=== PATIENT | female | born 1960 | race Caucasian/White ===

== ENCOUNTER 2025-02-18 13:36 | Inpatient (IN) | payer OTHER ==
[~2025-02-18] VITALS: Ht 170.2 cm; Wt 76.6 kg
[2025-02-18 14:34] LABS: BASO # 0.0 10^3/uL (0.0-0.2); BASO % 0.5 % (0.0-1.0); EOS # 0.1 10^3/uL (0.0-0.5); EOS % 0.7 % (0.0-3.0); LYMPH # 2.4 10^3/uL (1.5-5.0); LYMPH % 32.2 % (24.0-44.0); MONO # 2.3 10^3/uL (0.0-0.8); MONO % 30.4 % (2.0-8.0); NEUTROPHILS # 2.6 10^3/uL (1.5-8.5); NEUTROPHILS % 35.4 % (36.0-66.0); PLATELET COUNT, AUTOMATED 182 10^3/uL (150-450)
[2025-02-18 14:58] LABS: ALT/SGPT 22.0 U/L (7.0-40); AST/SGOT 18.0 U/L (<34); CALCIUM LEVEL 13.3 MG/DL (8.3-10.6); CARBON DIOXIDE LEVEL 25.0 MMOL/L (20-31); CHLORIDE LEVEL 109.0 MMOL/L (98-107); CREATININE FOR GFR 1.37 MG/DL (0.55-1.30); GLOMERULAR FILTRATION RATE 43.1 (>45); POTASSIUM SERUM 3.8 MMOL/L (3.5-5.1); SODIUM LEVEL 144.0 MMOL/L (136-145)
[2025-02-18 15:02] LABS: THYROXINE (T4) 8.1 UG/DL (4.5-10.9)
[2025-02-18 15:10] LABS: T UPTAKE 29.2 % (22.5-37.0)
[2025-02-18 16:02] LABS: PTH INTACT 843.6 PG/ML (18.5-88.0)
[2025-02-18] MEDS ORDERED: IRON27TA2 PO (16:05)
[2025-02-18] MEDS ORDERED: CALC-190 PO (16:05)
[2025-02-18] MEDS ORDERED: CHOL100012 PO (16:05)
[2025-02-18] MEDS ORDERED: HOME MED LIST COMPLETE! XX SCH (16:05)
[2025-02-18] MEDS ORDERED: THERTAB52 PO (16:05)
[2025-02-18] MEDS ORDERED: OMEP-173 PO (16:05)
[2025-02-18 16:06] LABS: TOTAL 25(OH) VITAMIN D 24.8 NG/ML (20.0-100.0)
[2025-02-18] MEDS: NS (Normal Saline) 0.9% 1,000 ML IV SCH ×2 (16:22→17:15)
[2025-02-18 18:10] LABS: PHOSPHORUS LEVEL 1.5 MG/DL (2.4-5.1)
[2025-02-18] MEDS: CINACALCET 30 MG TAB PO SCH (21:32)
[2025-02-18 22:04] VITALS: BP 140/74; TEMP 97.1; O2SAT 99
[2025-02-19 04:55] VITALS: BP 126/65; TEMP 97.9; O2SAT 96
[2025-02-19 07:19] LABS: PLATELET COUNT, AUTOMATED 146 10^3/uL (150-450)
[2025-02-19 07:49] LABS: ALT/SGPT 19.0 U/L (7.0-40); AST/SGOT 16.0 U/L (<34); CALCIUM LEVEL 11.3 MG/DL (8.3-10.6); CARBON DIOXIDE LEVEL 25.0 MMOL/L (20-31); CHLORIDE LEVEL 113.0 MMOL/L (98-107); CREATININE FOR GFR 1.09 MG/DL (0.55-1.30); GLOMERULAR FILTRATION RATE 56.7 (>45); MAGNESIUM LEVEL 1.7 MG/DL (1.8-2.4); POTASSIUM SERUM 3.7 MMOL/L (3.5-5.1); SODIUM LEVEL 147.0 MMOL/L (136-145)
[2025-02-19] MEDS: OMEPRAZOLE 20MG CAP PO SCH (08:42)
[2025-02-19 11:47] VITALS: BP 124/60; TEMP 97.4; O2SAT 98
[2025-02-19] MEDS: POTASSIUM PHOSPHATE INJ 30 MMOL in D5W 500 ML IV ONE (15:48)
[2025-02-19 19:33] VITALS: BP 127/72; TEMP 97.3; O2SAT 98
[2025-02-19] MEDS: NEUTRA-PHOS 1.5 GM PACKET PO ONE (19:48)
[2025-02-19] MEDS: VITAMIN D 1,000 INTERNATIONAL UNITS TABLET PO SCH (19:48)
[2025-02-19 19:49] LABS: CALCIUM LEVEL 11.3 MG/DL (8.3-10.6); CARBON DIOXIDE LEVEL 24.0 MMOL/L (20-31); CHLORIDE LEVEL 111.0 MMOL/L (98-107); CREATININE FOR GFR 1.18 MG/DL (0.55-1.30); GLOMERULAR FILTRATION RATE 51.6 (>45); POTASSIUM SERUM 3.3 MMOL/L (3.5-5.1); SODIUM LEVEL 145.0 MMOL/L (136-145)
[2025-02-19] MEDS: MAG SULF 1GM/100ML (MAG RUN) 1 GM in IV 1 EA IV ONE (19:56)
[2025-02-19] MEDS: ZOLEDRONIC ACID 4 MG in IV 1 EA IV ONE (21:11)
[2025-02-20 04:03] VITALS: BP 121/58; TEMP 97.4; O2SAT 98
[2025-02-20 07:08] LABS: CALCIUM LEVEL 9.7 MG/DL (8.3-10.6); CARBON DIOXIDE LEVEL 22.0 MMOL/L (20-31); CHLORIDE LEVEL 115.0 MMOL/L (98-107); CREATININE FOR GFR 1.07 MG/DL (0.55-1.30); GLOMERULAR FILTRATION RATE 58.0 (>45); MAGNESIUM LEVEL 1.6 MG/DL (1.8-2.4); PHOSPHORUS LEVEL 2.7 MG/DL (2.4-5.1); POTASSIUM SERUM 3.8 MMOL/L (3.5-5.1); SODIUM LEVEL 146.0 MMOL/L (136-145)
[2025-02-20] MEDS: POTASSIUM CHLORIDE 10MEQ SR TABLET PO ONE (11:53)
[2025-02-20] MEDS: MAG SULF 1GM/100ML (MAG RUN) 1 GM in IV 1 EA IV SCH (11:53)
[2025-02-20 11:59] VITALS: BP 138/79; TEMP 98.1; O2SAT 99
[2025-02-20] MEDS: NEUTRA-PHOS 1.5 GM PACKET PO ONE (13:01)
[2025-02-20] MEDS: ACETAMINOPHEN 500 MG TAB PO ONE (15:03)
[2025-02-20] MEDS: amLODIPine 5 MG TAB PO ONE (15:04)
[2025-02-20 19:32] VITALS: BP 132/67; TEMP 97.4; O2SAT 98
[2025-02-21 04:13] VITALS: BP 144/69; TEMP 97.8; O2SAT 97
[2025-02-21 06:01] LABS: CALCIUM LEVEL 8.8 MG/DL (8.3-10.6); CARBON DIOXIDE LEVEL 22.0 MMOL/L (20-31); CHLORIDE LEVEL 113.0 MMOL/L (98-107); CREATININE FOR GFR 1.07 MG/DL (0.55-1.30); GLOMERULAR FILTRATION RATE 58.0 (>45); MAGNESIUM LEVEL 1.9 MG/DL (1.8-2.4); PHOSPHORUS LEVEL 2.0 MG/DL (2.4-5.1); POTASSIUM SERUM 3.9 MMOL/L (3.5-5.1); SODIUM LEVEL 144.0 MMOL/L (136-145)
[2025-02-21] MEDS: ACETAMINOPHEN 500 MG TAB PO ONE (08:40)
[2025-02-21] MEDS: MAG SULF 1GM/100ML (MAG RUN) 1 GM in IV 1 EA IV ONE (08:40)
[2025-02-21] MEDS: POTASSIUM CHLORIDE 10MEQ SR TABLET PO ONE (08:40)
[2025-02-21 08:42] VITALS: BP 136/66
[2025-02-21] MEDS: amLODIPine 5 MG TAB PO ONE (08:42)
[2025-02-21 09:22] LABS: INR 1.0
[2025-02-21] MEDS: NEUTRA-PHOS 1.5 GM PACKET PO ONE (09:40)
[2025-02-21] MEDS: RIZATRIPTAN BENZOATE 10 MG TAB PO ONE (09:41)
[2025-02-21 12:00] VITALS: BP 130/70; TEMP 97; O2SAT 100
[2025-02-21] MEDS ORDERED: VITAD1000T PO (15:24)
[2025-02-21] MEDS ORDERED: NEUTRA-PHOS 1.5 GM PACKET PO ONE (15:40)
[2025-02-22] MEDS ORDERED: NEUTRA-PHOS 1.5 GM PACKET PO SCH (08:00)
== END 2025-02-21 17:03 | disposition home or self-care (01) | DRG 424 ==
LOC: M ED 13:36 → M ED INP 17:11 → M MS4PR 22:10
PROVIDERS: ADMIT Internal Medicine; ATTEND General Practice
DX: E21.0 Primary hyperparathyroidism (principal); N17.9 Acute kidney failure, unspecified; E87.0 Hyperosmolality and hypernatremia; M81.0 Age-related osteoporosis without current pathological fracture; K21.9 Gastro-esophageal reflux disease without esophagitis; D50.9 Iron deficiency anemia, unspecified; E87.6 Hypokalemia; E04.2 Nontoxic multinodular goiter; D35.1 Benign neoplasm of parathyroid gland; Z90.49 Acquired absence of other specified parts of digestive tract; Z79.899 Other long term (current) drug therapy

== ENCOUNTER → 2025-02-28 | Outpatient (CLI) | payer OTHER ==
[~2025-02-28] MED LIST: CALC-190 PO; CHOL100012 PO; IRON27TA2 PO; OMEP-173 PO; THERTAB52 PO; VITAD1000T PO
[2025-02-28] MEDS: LIDOCAINE 1% MDV 20 ML VIAL SC STA (10:28)
[2025-02-28 10:30] VITALS: TEMP 98.9
[2025-02-28 11:10] VITALS: BP 152/72; O2SAT 98
== END ==
LOC: M IRPRO 09:51
PROVIDERS: ATTEND Otolaryngology
DX: E04.1 Nontoxic single thyroid nodule (principal)

== ENCOUNTER 2025-04-02 08:27 | Day surgery (SDC) | payer OTHER ==
[~2025-04-02] VITALS: Ht 170.2 cm; Wt 78.0 kg
[2025-04-02] MEDS ORDERED: LR 1,000 ML IV SCH (09:15)
[2025-04-02] MEDS ORDERED: dexAMETHasone 4 MG/ML 1 ML VIAL As Ordered ONE (10:43)
[2025-04-02] MEDS ORDERED: SUGAMMADEX SODIUM 500 MG/5 ML VIAL As Ordered ONE (10:44)
[2025-04-02] MEDS ORDERED: ONDANSETRON 4MG 2ML VIAL As Ordered ONE (10:44)
[2025-04-02] MEDS ORDERED: ROCURONIUM BROMIDE 50MG/5ML VIAL As Ordered ONE (10:44)
[2025-04-02] MEDS ORDERED: LIDOCAINE 2% 100 MG/5 ML SDV (FOR ANES.) As Ordered ONE (10:44)
[2025-04-02] MEDS ORDERED: SUCCINYLCHOLINE 100MG/5ML SYRINGE As Ordered ONE (10:44)
[2025-04-02] MEDS ORDERED: MIDAZOLAM INJ 2 MG/2 ML VIAL As Ordered ONE (12:32)
[2025-04-02] MEDS ORDERED: ACETAMINOPHEN 1000MG/100ML IV BAG As Ordered ONE (14:01)
[2025-04-02] MEDS ORDERED: HYDROmorphone HCL 2 MG/ML 1 ML VIAL As Ordered ONE (15:26)
[2025-04-02] MEDS: LIDOCAINE W/EPINEPHrine 1% 20 ML VIAL As Ordered ONE (16:26)
[2025-04-02] MEDS: ONDANSETRON 4MG 2ML VIAL IV PRN (17:39)
[2025-04-02] MEDS: MORPHINE 4 MG/ML 1 ML VIAL IV PRN (17:39)
[2025-04-02 19:18] VITALS: BP 119/62; TEMP 97.9; O2SAT 96
== END 2025-04-02 19:22 | disposition home or self-care (01) ==
LOC: M SDC 08:27
PROVIDERS: ATTEND Otolaryngology
DX: D35.1 Benign neoplasm of parathyroid gland (principal); E21.0 Primary hyperparathyroidism; E07.89 Other specified disorders of thyroid; I48.91 Unspecified atrial fibrillation; Z79.899 Other long term (current) drug therapy; Z90.89 Acquired absence of other organs; Z87.891 Personal history of nicotine dependence
CPT/HCPCS: 36415; 60220; 60500; 82330; 83970; 88305; J0131; J0330; J1100; J1171; J2250; J2405; J3010